=== PATIENT | female | born 1975 | race Two or more races ===

== ENCOUNTER 2021-11-15 21:01 | Emergency (ER) | payer MEDICAID ==
[~2021-11-15] VITALS: Ht 165.1 cm; Wt 64.0 kg
[2021-11-15 21:37] VITALS: BP 114/71
[2021-11-15] MEDS ORDERED: B50 MT (22:51)
== END 2021-11-15 23:06 | disposition home or self-care (01) ==
LOC: ER 21:01
DX: L50.9 Urticaria, unspecified (principal); T78.49XA Other allergy, initial encounter; X58.XXXA Exposure to other specified factors, initial encounter
CPT/HCPCS: 99281

== ENCOUNTER 2022-03-01 09:17 | Emergency (ER) | payer MEDICAID ==
[~2022-03-01] VITALS: Ht 167.6 cm; Wt 90.0 kg
[~2022-03-01 09:17] MED LIST: B50 MT
[2022-03-01 10:19] LABS: BASOPHILS % 0.9 % (0.0-2.0); EOSINOPHILS % 2.7 % (0.0-5.0); HEMOGLOBIN. 10.8 g/dL (12.0-16.0); LYMPHOCYTES % 20.1 % (20.0-50.0); MEAN CORPUSCULAR HEMOGLOBIN 29.4 pg (28.0-32.0); MEAN CORPUSCULAR VOLUME 89.6 fL (81.0-99.0); MEAN PLATELET VOLUME 8.3 fl (7.4-10.4); MONOCYTES % 8.3 % (2.0-8.0); PLATELET 225 x1000/uL (130-400); RED BLOOD CELL COUNT 3.68 mill/uL (4.2-5.4); RED CELL DISTRIBUTION WIDTH 13.6 % (11.6-14.6)
[2022-03-01 10:25] LABS: CHLORIDE 106 mEq/L (98-107)
[2022-03-01] MEDS ORDERED: BENZ100C86 MT (10:58)
[2022-03-01 11:01] VITALS: BP 100/63
== END 2022-03-01 11:40 | disposition home or self-care (01) ==
LOC: ER 09:17
DX: R05.9 Cough, unspecified (principal); R07.89 Other chest pain
CPT/HCPCS: 36415; 71045; 80053; 83880; 84484; 85025; 93005; 99285